=== PATIENT | female | born 1975 | race African-American/Black ===

== ENCOUNTER → 2018-05-23 | Day surgery (SDC) | payer OTHER ==
[~2018-05-23] MED LIST: BIOTIN PO; CALCIUM PO; ESTRADIOL PO; FENTANYL CITRATE/PF 100MCG/2 ML INJ ONE; FISH OIL PO; MIDAZOLAM HCL 5MG/ML 2ML VIAL ONE; PROBIOTIC PO; PROPOFOL IV EMULSION 10 MG/ML 50 ML VIAL ONE; VITAMIN C PO; VITAMIN E PO
--- NOTE | 2018-05-23 17:11 | Operative Report ---
DATE OF PROCEDURE: May 23, [address] Nadia Koehler. 2. Dr. Harrison Monique. PROCEDURES PERFORMED 1. Esophagogastroduodenoscopy with biopsies. 2. Colonoscopy with polypectomy. INDICATIONS FOR ESOPHAGOGASTRODUODENOSCOPY: History of melena. INDICATIONS FOR COLONOSCOPY: Lower abdominal pain, constipation. MEDICATION: Patient was done under MAC. Please see anesthesiologist's note. PROCEDURE: With the patient in left lateral decubitus position, a flexible fiberoptic Olympus gastroscope was introduced into the esophagus under direct visualization without any difficulty. There was some patchy erythema noted in distal esophagus. The scope was then advanced with ease into the stomach. Mucosa overlying the antrum and the body revealed some patchy erythema and low-grade to moderate edema and biopsies were obtained and sent to stain for H. pylori. Pylorus appeared to be of normal contour and shape. It was intubated with ease and the scope was advanced all the way to the 2nd portion of the duodenum. The scope was then withdrawn slowly. Mucosa overlying the proximal 2nd portion and the duodenal bulb appeared to be within normal limits. The scope was then withdrawn back into the stomach and retroflexed and mucosa overlying the fundus and the cardia appeared to be within normal limits. The scope was then straightened out. The stomach was decompressed. The scope was subsequently withdrawn. Patient tolerated the procedure well. IMPRESSION 1. Distal esophagitis, mild. 2. Gastritis, biopsied. Biopsies sent to stain for Helicobacter pylori. PLAN: Follow up histology. Initiate Protonix 40 mg 1 p.o. q.a.m. a.c. Patient was then turned around and after adequate lubrication of the anal canal, a flexible fiberoptic Olympus colonoscope was inserted into the rectum with ease and advanced all the way to the cecum. Two polyps were hot biopsied from the cecum. Diverticular disease was noted in the ascending colon and some in the transverse. One polyp was snared and 2 polyps were hot biopsied in the descending colon. Four polyps were hot biopsied in the sigmoid. Six polyps were hot biopsied in the rectum and 1 polyp was snared from the rectum. The scope was then retroflexed into the distal rectum and small internal hemorrhoids were noted, none of which was actively bleeding. The scope was then straightened out. It was subsequently withdrawn. Patient tolerated the procedure well. IMPRESSION 1. Cecal polyps x2, hot biopsied. 2. Diverticulosis. 3. Descending colon polyps x3, one snared and 2 hot biopsied. 4. Sigmoid colon polyps x4, hot biopsied. 5. Rectal polyps x7, one snared and 6 hot biopsied. 6. Internal hemorrhoids, none actively bleeding. PLAN: Follow up histology. Initiate high-fiber low-fat diet. Start MiraLax 17 grams in a glass of water once daily. Patient might benefit from a followup colonoscopy in 1 year. Fifteen polyps were removed. Job#: [id number] AKU cc:MD HARRISON RIVERA MD
--- OUTSIDE RECORDS SUMMARY | 2018-05-25 10:52 | XMS REPORT | Summary of Care ---
Author Author WALE ROLDAN M.D. 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 Unavailable Unavailable WALE MAN MD Unavailable Unavailable Unavailable Unavailable Functional Status Name Dates Details Functional status health issues are not documented Status: Name Dates Details Cognitive status health issues are not documented Status: Problems Name Dates Details Referred otalgia of right ear (388.72, H92.01) Status: Active Abnormal auditory perception of both ears (388.40, H93.293) Status: Active Medications Name Dates Details Depo-Provera SUSP Active Estradiol TABS * Refills: 0 Active Allergies and Adverse Reactions Name Dates Details No Known Drug Allergies (Allergy) Status: Active Procedures Procedure Dates Details Procedures not documented Immunization Name Dates Details Immunizations not documented Family History Name Dates Details No significant family history (V49.89, Z78.9) Comments: Family History Status: Active Social History Name Dates Details - Status: Name Dates Details Never smoker Vital Signs Date Test Result Details [id number] BP Systolic 116 mm[Hg] Status: BP Diastolic 82 mm[Hg] Status: Height 66 in Status: Weight 149.3125 lb Status: Body Mass Index Calculated 24.1 kg/m2 Status: Body Surface Area Calculated 1.77 m2 Status: Heart Rate 94 /min Status: Results Date Description Value Details Results not documented Plan of Care Name Dates Details Planned Observations Planned Goals not documented Interventions Provided Plan* tmj atr today. Instructions Name Dates Details Instructions not documented Encounters Appointment; WALE ROLDAN M.D. Encounter Diagnosis: Problem not documented On: 12-May-2018 14:15
== END | disposition home or self-care (01) ==
LOC: ENDO 11:53
PROVIDERS: ATTEND Internal Medicine Gastroenterology
DX: K29.50 Unspecified chronic gastritis without bleeding (principal); D12.0 Benign neoplasm of cecum; D12.4 Benign neoplasm of descending colon; K62.1 Rectal polyp; B96.81 Helicobacter pylori [H. pylori] as the cause of diseases classified elsewhere; K59.00 Constipation, unspecified; K20.9 Esophagitis, unspecified; K57.30 Diverticulosis of large intestine without perforation or abscess without bleeding; K64.8 Other hemorrhoids; K62.89 Other specified diseases of anus and rectum; R15.2 Fecal urgency
CPT/HCPCS: 36415; 43239; 45384; 45385; 81025; 84443; J2250